=== PATIENT | female | born 1955 | race Caucasian/White ===

== ENCOUNTER 2018-10-07 09:34 | Emergency (ER) | payer OTHER ==
[2018-10-07 10:42] LABS: URINE SOURCE CLEAN C
[2018-10-07 10:48] LABS: URINE BILIRUBIN NEGATIVE (NEGATIVE); URINE BLOOD NEGATIVE (NEGATIVE); URINE GLUCOSE (UA) NEGATIVE (NEGATIVE); URINE KETONE NEGATIVE (NEGATIVE); URINE LEUKOCYTE ESTERASE NEGATIVE (NEGATIVE); URINE MICROSCOPIC INDICATED? YES; URINE NITRATE POSITIVE (NEGATIVE); URINE PROTEIN NEGATIVE (NEGATIVE); URINE UROBILINOGEN 0.2 E.U./dL (0.2 - 1.0)
[2018-10-07 10:49] LABS: URINE CLARITY CLEAR (CLEAR); URINE COLOR YELLOW
[2018-10-07 10:50] LABS: % BASOPHILS 1.4 % (0.0-2.0); % LYMPHOCYTES 22.6 % (20.0-50.0); BASOPHILE ABSOLUTE 0.1 Th/cumm (0-0.2); EOSINOPHILE ABSOLUTE 0.3 Th/cmm (0.1-0.4); HEMATOCRIT 43.2 % (41.0-60); HEMOGLOBIN 14.4 gm/dL (12-16); MEAN CELL VOLUME 82.3 fl (81-100); MEAN CORPUSCULAR HEMOGLOBIN 27.4 pg (27.0-31.0); MEAN CORPUSCULAR HGB CONC 33.3 pg (28.0-36.0); MEAN PLATELET VOLUME 7.4 fl; MONOCYTE ABSOLUTE 0.3 Th/cmm (0.3-1.0); NEUTROPHILE ABSOLUTE 6.3 Th/cmm (1.8-8.0); PLATELET COUNT 308 Th/cmm (150-400); RED BLOOD COUNT 5.25 Mil/cmm (3.80-5.10)
[2018-10-07 10:57] LABS: URINE RBC 0-2 /hpf (0-5); URINE WBC 0-2 /hpf (0-5)
[2018-10-07 10:58] LABS: URINE BACTERIA MANY /hpf (NONE SEEN); URINE EPITHELIAL CELLS FEW /lpf (FEW)
[2018-10-07 11:05] LABS: ALB/GLOB RATIO 1.3 (1.0-1.8); ALKALINE PHOSPHATASE 160 U/L (34-104); ANION GAP 12.6 (7.0-16.0); BILIRUBIN,TOTAL 0.6 mg/dL (0.3-1.0); BUN - UREA NITROGEN 9 mg/dL (7-25); CALCIUM SERUM 9.3 mg/dL (8.6-10.3); CARBON DIOXIDE 22.3 mEq/L (21.0-31.0); CHLORIDE 105 mEq/L (98-107); CREATININE - SERUM 0.6 mg/dL (0.6-1.2); GFR AFRICAN-AMERICAN > 60.0 ml/min (>90); GFR NON AFRICAN-AMERICAN > 60.0 ml/min; GLUCOSE 117 mg/dL (70-105); POTASSIUM SERUM 3.9 mEq/L (3.5-5.1); SGOT 10 U/L (13-39); SGPT/ALT 15 U/L (7-52); SODIUM SERUM 136 mEq/L (136-145); TOTAL PROTEIN,SERUM 7.2 gm/dL (6.0-8.3)
--- NOTE | 2018-10-07 11:30 | ED Physician Chart ---
ED Chief Complaint/HPI - Patient Information Date Seen:: 10/07/18 Time Seen:: 11:12 Chief Complaint:: vertigo dizziness History of Present Illness:: 62 yr old female with vertigo nausea on meclizine and zofran no dysuria some rt sided back pain Allergies:: Allergies Allergy/AdvReac Type Severity Reaction Status Date / Time codeine Allergy Verified 10/07/18 10:04 Vitals:: Vital Signs - 8 hr 10/07/18 10:16 Temp 98.5 F HR 90 RR 18 BP 146/84 O2 Sat % 98 ED Review of Systems - Review of Systems General/Constitutional: No fever Skin: No skin lesions Head: No headache Eyes: No loss of vision ENT: No earache Neck: No neck pain Cardio Vascular: No chest pain Pulmonary: No SOB GI: Nausea G/U: No dysuria Musculoskeletal: No bone or joint pain Endocrine: No polyuria Psychiatric: Depression Hematopoietic: No bruising Allergic/Immuno: No urticaria Neurological: No syncope Family Medical History - Family Member Mother Ethnicity: Living Status: Still Living Hx Family Cancer: Yes Hx Family Hypertension: Yes Hx Family Diabetes: Yes ED Labs/Radiology/EKG Results - Lab Results Results: Laboratory Tests 10/07/18 10/07/18 10/07/18 10:35 10:35 10:35 WBC 9.0 RBC 5.25 H Hgb 14.4 Hct 43.2 MCV 82.3 MCH 27.4 MCHC Differential 33.3 RDW 14.0 Plt Count 308 MPV 7.4 Neutrophils % 70.0 Lymphocytes % 22.6 Monocytes % 3.0 Eosinophils % 3.0 Basophils % 1.4 Sodium 136 Potassium 3.9 Chloride 105 Carbon Dioxide 22.3 Anion Gap 12.6 BUN 9 Creatinine 0.6 Est GFR ( Amer) > 60.0 Est GFR (Non-Af Amer) > 60.0 BUN/Creatinine Ratio 15.0 Glucose 117 H Calcium 9.3 Total Bilirubin 0.6 AST 10 L ALT 15 Alkaline Phosphatase 160 H Total Protein 7.2 Albumin 4.0 Globulin 3.2 Albumin/Globulin Ratio 1.3 Urine Source CLEAN C Urine Color YELLOW Urine Clarity CLEAR Urine pH 6.0 Ur Specific Mccune 1.020 Urine Protein NEGATIVE Urine Glucose (UA) NEGATIVE Urine Ketones NEGATIVE Urine Blood NEGATIVE Urine Nitrate POSITIVE H Urine Bilirubin NEGATIVE Urine Urobilinogen 0.2 Ur Leukocyte Esterase NEGATIVE Urine RBC 0-2 Urine WBC 0-2 Ur Epithelial Cells FEW Urine Bacteria MANY H ED Septic Shock - . Is Septic Shock (SBP<90, OR Lactate>4 mmol\L) present?: No - <6hrs of presentation: Vital Signs: Vital Signs - 8 hr 10/07/18 10:16 Temp 98.5 F HR 90 RR 18 BP 146/84 O2 Sat % 98 ED Reassessment (Disposition) - Reassessment Reassessment:: vertigo nausea back pain r/o uti - Diagnosis Diagnosis:: as above - Aftercare/Follow up Instructions Aftercare/Follow-Up Instructions:: Counseled pt regarding lab results/diagnosis & need follow up Notes:: I suggested pt do change in diet and exercise and try to cut back on all the meds pt has 9 meds she takes daily - Patient Disposition Discharge/Transfer:: Home Condition at Disposition:: Stable
== END 2018-10-07 12:24 | disposition home or self-care (01) ==
LOC: ER 09:34
DX: R42 Dizziness and giddiness (principal); M54.9 Dorsalgia, unspecified; R11.0 Nausea; Z88.5 Allergy status to narcotic agent
CPT/HCPCS: 36415-UA; 80053-TC; 81001-TC; 85025-TC; 87086-90; Z7502